=== PATIENT | male | born 1940 | race African-American/Black ===

== ENCOUNTER 2017-12-21 23:04 | Emergency (ER) | payer MEDICARE, MEDICAID ==
[~2017-12-21] VITALS: Ht 162.6 cm; Wt 80.0 kg
[2017-12-22 01:03] VITALS: BP 151/82
== END 2017-12-22 01:38 | disposition left against medical advice (07) ==
LOC: ER 23:15
DX: R04.0 Epistaxis (principal); Z53.21 Procedure and treatment not carried out due to patient leaving prior to being seen by health care provider

== ENCOUNTER 2022-06-10 19:26 | Inpatient (IN) | payer MEDICARE, MEDICAID ==
[~2022-06-10] VITALS: Ht 162.6 cm; Wt 61.7 kg
[2022-06-10 23:37] LABS: CHLORIDE 106 mEq/L (98-107)
[2022-06-10 23:38] LABS: HEMATOCRIT. 35.2 % (42.0-52.0); HEMOGLOBIN. 11.5 g/dL (14.0-18.0); MEAN CORPUSCULAR HEMOGLOBIN 30.5 pg (28.0-32.0); MEAN CORPUSCULAR VOLUME 93.6 fL (80.0-94.0); MEAN PLATELET VOLUME 9.8 fl (7.4-10.4); PLATELET 179 x1000/uL (130-400); RED BLOOD CELL COUNT 3.76 mill/uL (4.7-6.1); RED CELL DISTRIBUTION WIDTH 16.2 % (11.6-14.6)
[2022-06-11] MEDS ORDERED: PIPERACILLIN/TAZ 3.375G PREMIX 50 ML IV ONE (01:00)
[2022-06-11] MEDS ORDERED: VANCOMYCIN 1G PREMIX 200 ML IV ONE (01:00)
[2022-06-11 07:30] LABS: PLATELET ESTIMATE NORMAL
[2022-06-11 09:00] VITALS: BP 147/62
[2022-06-11] MEDS ORDERED: ACETAMINOPHEN 325MG TABLET PO PRN (12:15)
[2022-06-11] MEDS ORDERED: ONDANSETRON HCL 4MG/2ML INJ IV PRN (12:15)
[2022-06-11] MEDS ORDERED: IPRATROPIUM/ALBUTEROL 0.5-3(2.5)MG/3ML NEB HHN PRN (12:15)
[2022-06-11] MEDS ORDERED: ENOXAPARIN 40MG/0.4ML SYR SUBCUT SCH (13:00)
[2022-06-11] MEDS ORDERED: LEVOFLOXACIN 500MG PREMIX 100 ML IV NR (13:30)
[2022-06-11 16:00] VITALS: BP 142/75
[2022-06-11 16:00] LABS: HEMATOCRIT. 34.5 % (42.0-52.0); HEMOGLOBIN. 11.3 g/dL (14.0-18.0); MEAN CORPUSCULAR HEMOGLOBIN 30.6 pg (28.0-32.0); MEAN CORPUSCULAR VOLUME 93.4 fL (80.0-94.0); MEAN PLATELET VOLUME 9.9 fl (7.4-10.4); PLATELET 162 x1000/uL (130-400)
[2022-06-11] MEDS ORDERED: VANCOMYCIN 1G PREMIX 200 ML IV SCH (16:00)
[2022-06-11 16:18] LABS: CHLORIDE 106 mEq/L (98-107)
[2022-06-11] MEDS: SODIUM CHLORIDE 0.9% 1,000 ML IV SCH (16:25)
[2022-06-11 16:29] LABS: CREATINE KINASE MB FRACTION 1.3 ng/mL (0.5-3.6)
[2022-06-11] MEDS ORDERED: QUET25TA PO (16:53)
[2022-06-11] MEDS ORDERED: ATOR40TA70 PO (16:53)
[2022-06-11 18:09] LABS: BG BASE EXCESS -0.6 mmol/L (-2.0-2.0); BG CARBOXYHEMOGLOBIN 0.7 % (0.5-1.5); BG DEOXYHEMOGLOBIN 5.8 % (0.0-5.0); BG FRACTION INSPIRED OXYGEN 21; BG HCO3 ACT 23.1 mmol/L (22.0-26.0); BG METHEMOGLOBIN 0.3 % (0.0-1.5); BG OXYGEN SATURATION 94.1 % (92.0-98.5); BG OXYHEMOGLOBIN 93.2 % (94.0-97.0); BG PH 7.438 (7.350-7.450); BG PO2 65.1 mmHg (75.0-100.0); BG SAMPLE SITE RIGHT RADIAL; BG TOTAL HEMOGLOBIN 12.4 g/dL (12.0-18.0); BG VENT MODE ROOM AIR
[2022-06-11 20:00] VITALS: BP 161/68
[2022-06-11 21:47] LABS: CLARITY URINE CLOUDY (CLEAR); COLOR URINE RED (YELLOW); KETONES URINE NEGATIVE (NEGATIVE); LEUKOCYTE ESTERASE URINE 2+ (NEGATIVE); NITRITE URINE POSITIVE (NEGATIVE); OCCULT BLOOD URINE 2+ (NEGATIVE); PROTEIN URINE 3+ (NEGATIVE); SPECIFIC GRAVITY URINE 1.009 (1.005-1.030); UROBILINOGEN URINE 0.2 E.U./dL (0.2-1.0)
[2022-06-11 23:07] LABS: PLATELET ESTIMATE NORMAL
[2022-06-12] VITALS: BP 154/93
[2022-06-12 04:00] VITALS: BP 131/68
[2022-06-12] MEDS: SODIUM CHLORIDE 0.9% 1,000 ML IV SCH (07:22)
[2022-06-12 10:23] LABS: HEMATOCRIT. 31.7 % (42.0-52.0); HEMOGLOBIN. 10.4 g/dL (14.0-18.0); MEAN CORPUSCULAR HEMOGLOBIN 30.7 pg (28.0-32.0); MEAN CORPUSCULAR VOLUME 93.2 fL (80.0-94.0); MEAN PLATELET VOLUME 9.6 fl (7.4-10.4); PLATELET 139 x1000/uL (130-400); RED CELL DISTRIBUTION WIDTH 16.5 % (11.6-14.6)
[2022-06-12 10:40] LABS: CHLORIDE 109 mEq/L (98-107)
[2022-06-12 12:00] VITALS: BP 138/63
[2022-06-12] MEDS: ENOXAPARIN 30MG/0.3ML SYR SUBCUT SCH (13:23)
[2022-06-12] MEDS: LEVOFLOXACIN 250MG PREMIX 50 ML IV SCH (13:24)
[2022-06-12 16:31] LABS: CREATINE KINASE MB FRACTION 1.6 ng/mL (0.5-3.6)
[2022-06-12] MEDS: VANCOMYCIN 750MG PREMIX 150 ML IV SCH (20:02)
[2022-06-13] MEDS: SODIUM CHLORIDE 0.9% 1,000 ML IV SCH ×2 (03:22→23:33)
[2022-06-13 08:00] VITALS: BP 153/77
[2022-06-13 10:44] LABS: PLATELET ESTIMATE NORMAL
[2022-06-13] MEDS: LEVOFLOXACIN 250MG PREMIX 50 ML IV SCH (11:17)
[2022-06-13 12:00] VITALS: BP 148/67
[2022-06-13] MEDS: ENOXAPARIN 30MG/0.3ML SYR SUBCUT SCH (12:21)
[2022-06-13 16:00] VITALS: BP 138/86
[2022-06-13 18:11] VITALS: BP 137/66
[2022-06-13 20:00] VITALS: BP 150/64
[2022-06-13] MEDS: VANCOMYCIN 750MG PREMIX 150 ML IV SCH (20:57)
[2022-06-13 23:46] VITALS: BP 144/69
[2022-06-14 04:00] VITALS: BP 143/70
[2022-06-14 08:00] VITALS: BP 138/96
[2022-06-14] MEDS: LEVOFLOXACIN 250MG PREMIX 50 ML IV SCH (11:15)
[2022-06-14 11:16] LABS: HEMATOCRIT. 32.1 % (42.0-52.0); HEMOGLOBIN. 10.4 g/dL (14.0-18.0); MEAN CORPUSCULAR HEMOGLOBIN 30.3 pg (28.0-32.0); MEAN CORPUSCULAR VOLUME 93.1 fL (80.0-94.0); MEAN PLATELET VOLUME 9.9 fl (7.4-10.4); PLATELET 169 x1000/uL (130-400); RED BLOOD CELL COUNT 3.44 mill/uL (4.7-6.1); RED CELL DISTRIBUTION WIDTH 16.2 % (11.6-14.6)
[2022-06-14 11:27] LABS: PROTHROMBIN TIME 11.1 sec (9.6-11.0)
[2022-06-14 12:00] VITALS: BP 159/74
[2022-06-14] MEDS: ENOXAPARIN 30MG/0.3ML SYR SUBCUT SCH (13:02)
[2022-06-14 14:25] LABS: PLATELET ESTIMATE NORMAL
[2022-06-14 16:00] VITALS: BP 145/74
[2022-06-14] MEDS: FAMOTIDINE 20MG/2ML VIAL IV SCH (17:03)
[2022-06-14] MEDS: VANCOMYCIN 750MG PREMIX 150 ML IV SCH (19:52)
[2022-06-14 20:00] VITALS: BP_SYST 141; BP_SYST 161; BP_DIAS 66; BP_DIAS 81
[2022-06-14] MEDS: SODIUM CHLORIDE 0.9% 1,000 ML IV SCH (20:15)
[2022-06-14 20:56] LABS: CHLORIDE 112 mEq/L (98-107)
[2022-06-15] VITALS: BP 159/78
[2022-06-15 04:00] VITALS: BP 165/81
[2022-06-15 08:04] LABS: HEMATOCRIT. 32.3 % (42.0-52.0); HEMOGLOBIN. 10.6 g/dL (14.0-18.0); MEAN CORPUSCULAR HEMOGLOBIN 30.5 pg (28.0-32.0); PLATELET 182 x1000/uL (130-400); RED BLOOD CELL COUNT 3.48 mill/uL (4.7-6.1); RED CELL DISTRIBUTION WIDTH 16.5 % (11.6-14.6)
[2022-06-15] MEDS: FAMOTIDINE 20MG/2ML VIAL IV SCH (09:21)
[2022-06-15 10:26] LABS: CHLORIDE 115 mEq/L (98-107)
[2022-06-15 12:00] VITALS: BP 150/72
[2022-06-15] MEDS: LEVOFLOXACIN 250MG PREMIX 50 ML IV SCH (12:28)
[2022-06-15] MEDS: ENOXAPARIN 30MG/0.3ML SYR SUBCUT SCH (12:28)
[2022-06-15] MEDS: SODIUM CHLORIDE 0.9% 1,000 ML IV SCH (15:54)
[2022-06-15 16:00] VITALS: BP 150/74
[2022-06-15 20:00] VITALS: BP 154/77
[2022-06-15] MEDS: METRONIDAZOLE 500MG TABLET PO SCH (21:02)
[2022-06-16] VITALS: BP 152/75
[2022-06-16 04:00] VITALS: BP 155/79
[2022-06-16] MEDS: METRONIDAZOLE 500MG TABLET PO SCH ×2 (09:00→20:19)
[2022-06-16] MEDS: FAMOTIDINE 20MG/2ML VIAL IV SCH (10:09)
[2022-06-16 10:29] LABS: PLATELET ESTIMATE NORMAL
[2022-06-16 11:24] LABS: HEMATOCRIT. 30.2 % (42.0-52.0); HEMOGLOBIN. 9.8 g/dL (14.0-18.0); MEAN CORPUSCULAR HEMOGLOBIN 29.8 pg (28.0-32.0); MEAN CORPUSCULAR VOLUME 91.6 fL (80.0-94.0); MEAN PLATELET VOLUME 10.3 fl (7.4-10.4); PLATELET 192 x1000/uL (130-400); RED CELL DISTRIBUTION WIDTH 16.3 % (11.6-14.6)
[2022-06-16] MEDS: LEVOFLOXACIN 250MG PREMIX 50 ML IV SCH (11:36)
[2022-06-16 12:00] VITALS: BP 162/84
[2022-06-16] MEDS: SODIUM CHLORIDE 0.9% 1,000 ML IV SCH (12:03)
[2022-06-16 12:56] LABS: PLATELET ESTIMATE NORMAL
[2022-06-16] MEDS: ENOXAPARIN 30MG/0.3ML SYR SUBCUT SCH (13:44)
[2022-06-16 16:00] VITALS: BP 158/78
[2022-06-16] MEDS: DEXTROSE 5% WATER 1,000 ML IV SCH (17:38)
[2022-06-17 08:00] VITALS: BP 147/79
[2022-06-17] MEDS: METRONIDAZOLE 500MG TABLET PO SCH (08:32)
[2022-06-17 12:00] VITALS: BP 147/70
[2022-06-17] MEDS ORDERED: LEVOFLOXACIN 500MG PREMIX 100 ML IV SCH (13:30)
[2022-06-17 13:41] LABS: HEMATOCRIT. 30.6 % (42.0-52.0); HEMOGLOBIN. 10.3 g/dL (14.0-18.0); MEAN CORPUSCULAR HEMOGLOBIN 30.6 pg (28.0-32.0); MEAN CORPUSCULAR VOLUME 91.4 fL (80.0-94.0); MEAN PLATELET VOLUME 10.6 fl (7.4-10.4); PLATELET 219 x1000/uL (130-400); RED BLOOD CELL COUNT 3.35 mill/uL (4.7-6.1); RED CELL DISTRIBUTION WIDTH 16.5 % (11.6-14.6)
[2022-06-17] MEDS: FAMOTIDINE 20MG/2ML VIAL IV SCH (14:14)
[2022-06-17] MEDS: ENOXAPARIN 30MG/0.3ML SYR SUBCUT SCH (14:14)
[2022-06-17 14:16] LABS: PLATELET ESTIMATE NORMAL
[2022-06-17] MEDS: DEXTROSE 5% WATER 1,000 ML IV SCH (14:20)
[2022-06-17 16:00] VITALS: BP 144/77
[2022-06-17] MEDS: LEVOFLOXACIN 250MG PREMIX 50 ML IV SCH (18:59)
[2022-06-17 20:00] VITALS: BP 142/85
[2022-06-18] VITALS: BP 143/82
[2022-06-18] MEDS: METRONIDAZOLE 500MG TABLET PO SCH ×3 (02:41→21:11)
[2022-06-18 04:00] VITALS: BP 149/78
[2022-06-18 07:15] LABS: BASOPHILS % 0.2 % (0.0-2.0); EOSINOPHILS % 2.1 % (0.0-5.0); HEMATOCRIT. 29.7 % (42.0-52.0); HEMOGLOBIN. 9.9 g/dL (14.0-18.0); LYMPHOCYTES % 9.3 % (20.0-50.0); MEAN CORPUSCULAR HEMOGLOBIN 30.6 pg (28.0-32.0); MEAN CORPUSCULAR VOLUME 91.6 fL (80.0-94.0); MEAN PLATELET VOLUME 10.1 fl (7.4-10.4); MONOCYTES % 8.8 % (2.0-8.0); NEUTROPHILS % 79.6 % (40.0-76.0); PLATELET 249 x1000/uL (130-400); RED BLOOD CELL COUNT 3.24 mill/uL (4.7-6.1); RED CELL DISTRIBUTION WIDTH 16.6 % (11.6-14.6)
[2022-06-18] MEDS: DEXTROSE 5% WATER 1,000 ML IV SCH (08:00)
[2022-06-18 08:02] LABS: CHLORIDE 110 mEq/L (98-107)
[2022-06-18] MEDS: FAMOTIDINE 20MG/2ML VIAL IV SCH (09:16)
[2022-06-18 12:00] VITALS: BP 132/68
[2022-06-18] MEDS: ENOXAPARIN 30MG/0.3ML SYR SUBCUT SCH (12:01)
[2022-06-18] MEDS: LEVOFLOXACIN 250MG PREMIX 50 ML IV SCH (12:01)
[2022-06-18 16:00] VITALS: BP 141/70
[2022-06-18 20:00] VITALS: BP 132/74
[2022-06-19] VITALS: BP 137/79
[2022-06-19] MEDS: DEXTROSE 5% WATER 1,000 ML IV SCH (04:53)
[2022-06-19 08:00] VITALS: BP 139/60
[2022-06-19] MEDS: FAMOTIDINE 20MG TABLET PO SCH (09:13)
[2022-06-19] MEDS: METRONIDAZOLE 500MG TABLET PO SCH ×2 (09:13→21:32)
[2022-06-19] MEDS: LEVOFLOXACIN 250MG PREMIX 50 ML IV SCH (10:16)
[2022-06-19 12:03] VITALS: BP 140/64
[2022-06-19] MEDS: ENOXAPARIN 40MG/0.4ML SYR SUBCUT SCH (13:00)
[2022-06-19 16:00] VITALS: BP 135/66
[2022-06-19 20:45] VITALS: BP 143/76
[2022-06-20 00:28] VITALS: BP 139/73
[2022-06-20 04:00] VITALS: BP 148/77
[2022-06-20] MEDS: FAMOTIDINE 20MG TABLET PO SCH (09:19)
[2022-06-20] MEDS: METRONIDAZOLE 500MG TABLET PO SCH ×2 (09:19→21:12)
[2022-06-20 12:00] VITALS: BP 130/74
[2022-06-20] MEDS: ENOXAPARIN 40MG/0.4ML SYR SUBCUT SCH (12:19)
[2022-06-20] MEDS: LEVOFLOXACIN 250MG PREMIX 50 ML IV SCH (12:19)
[2022-06-20] MEDS ORDERED: POTASSIUM CHLORIDE 20MEQ TABLET SR PO NR (13:45)
[2022-06-20 16:00] VITALS: BP 145/93
[2022-06-20 20:47] VITALS: BP 140/80
[2022-06-20] MEDS: DEXTROSE 5% WATER 1,000 ML IV SCH (21:12)
[2022-06-21 00:37] VITALS: BP 123/69
[2022-06-21 04:00] VITALS: BP 145/81
[2022-06-21 04:41] VITALS: BP 145/81
[2022-06-21 08:00] VITALS: BP 160/84
[2022-06-21] MEDS: FAMOTIDINE 20MG TABLET PO SCH (09:09)
[2022-06-21] MEDS: LEVOFLOXACIN 250MG PREMIX 50 ML IV SCH (11:00)
[2022-06-21 12:00] VITALS: BP 135/77
[2022-06-21] MEDS: ENOXAPARIN 40MG/0.4ML SYR SUBCUT SCH (13:00)
[2022-06-21 16:00] VITALS: BP 138/81
== END 2022-06-21 17:41 | disposition home health service (06) | DRG 871 ==
LOC: ER 19:26 → 7WST 06-11 02:48 → ENRESERV 06-11 08:20
PROVIDERS: ADMIT Internal Medicine; ATTEND Internal Medicine
DX: A41.9 Sepsis, unspecified organism (principal); G93.41 Metabolic encephalopathy; N39.0 Urinary tract infection, site not specified; K80.00 Calculus of gallbladder with acute cholecystitis without obstruction; N17.9 Acute kidney failure, unspecified; I10 Essential (primary) hypertension; Z20.822 Contact with and (suspected) exposure to COVID-19; E78.00 Pure hypercholesterolemia, unspecified; E80.6 Other disorders of bilirubin metabolism; D64.9 Anemia, unspecified; F03.A0 Unspecified dementia, mild, without behavioral disturbance, psychotic disturbance, mood disturbance, and anxiety; Z79.899 Other long term (current) drug therapy; Z86.73 Personal history of transient ischemic attack (TIA), and cerebral infarction without residual deficits
CPT/HCPCS: 36415; 36600; 70551; 71045; 74176; 76705; 78227; 80048; 80053; 80202; 81003; 82375; 82553; 82805; 82962; 83605; 84145; 84153; 84484; 85025; 87077; 87186; 87426; 87804; 93005; 97116; 97162; 97166; 97530; 97535; 99285; A9537; J1650; J1956; J2543; J3370; J3490; J7030; J7070; A4315; G0103

== ENCOUNTER 2023-08-11 15:24 | Emergency (ER) | payer MEDICARE, MEDICAID, OTHER ==
[~2023-08-11] VITALS: Ht 167.6 cm; Wt 65.0 kg
[~2023-08-11 15:24] MED LIST: ATOR40TA70 PO; QUET25TA PO
[2023-08-11 15:29] VITALS: BP 102/54; PULSE 71; RESP 16; TEMP 97.5; O2SAT 97
[2023-08-11] MEDS ORDERED: CEFTRIAXONE SODIUM 1G VIAL IM ONE (19:00)
[2023-08-11 19:13] LABS: BASOPHILS % 0.4 % (0.0-2.0); EOSINOPHILS % 3.2 % (0.0-5.0); HEMATOCRIT. 32.3 % (42.0-52.0); LYMPHOCYTES % 24.7 % (20.0-50.0); MEAN CORPUSCULAR HEMOGLOBIN 29.7 pg (28.0-32.0); MEAN CORPUSCULAR VOLUME 95.7 fL (80.0-94.0); MEAN PLATELET VOLUME 9.5 fl (7.4-10.4); MONOCYTES % 7.3 % (2.0-8.0); NEUTROPHILS % 64.4 % (40.0-76.0); PLATELET 185 x1000/uL (130-400); RED BLOOD CELL COUNT 3.38 mill/uL (4.7-6.1); RED CELL DISTRIBUTION WIDTH 17.8 % (11.6-14.6); WHITE BLOOD COUNT 4.6 x1000/uL (4.5-11.0)
[2023-08-11] MEDS ORDERED: SODIUM CHLORIDE 0.9% 1,000 ML IV ONE (19:15)
[2023-08-11 19:30] LABS: ALANINE AMINOTRANSFERASE < 7 IU/L (10-49); ALBUMIN 3.5 g/dL (3.2-4.8); ASPARTATE AMINOTRANSFERASE 12 IU/L (<34); BILIRUBIN TOTAL 0.6 mg/dL (0.1-1.0); CALCIUM 8.6 mg/dL (8.7-10.4); CARBON DIOXIDE 22 mEq/L (21-32); CHLORIDE 109 mEq/L (98-107); CREATININE 1.3 mg/dL (0.6-1.3); GLUCOSE 109 mg/dL (70-105); POTASSIUM 4.3 mEq/L (3.5-5.1); PROTEIN TOTAL 6.7 g/dL (6.0-8.3); SODIUM 138 mEq/L (136-145); UREA NITROGEN BLOOD 14 mg/dL (9-23)
[2023-08-11] MEDS ORDERED: CIPR-263 MT (19:52)
[2023-08-11 20:24] LABS: CLARITY URINE CLEAR (CLEAR); COLOR URINE YELLOW (YELLOW); GLUCOSE URINE NEGATIVE (NEGATIVE); KETONES URINE NEGATIVE (NEGATIVE); LEUKOCYTE ESTERASE URINE NEGATIVE (NEGATIVE); NITRITE URINE NEGATIVE (NEGATIVE); OCCULT BLOOD URINE 2+ (NEGATIVE); PH URINE 6.5 (4.5-8.0); PROTEIN URINE 2+ (NEGATIVE); SPECIFIC GRAVITY URINE 1.007 (1.005-1.030)
[2023-08-11 20:39] LABS: BACTERIA URINE NONE SEEN; RBC URINE 15-25 /hpf (0-2); SQUAMOUS EPITHELIAL CELL URINE RARE /lpf (RARE/1+); WBC URINE NONE SEEN /hpf (0-2)
[2023-08-11] MEDS ORDERED: CEFTRIAXONE SODIUM 1G VIAL IM NR (21:00)
== END 2023-08-11 22:28 | disposition home or self-care (01) ==
LOC: ER 15:24
DX: I89.0 Lymphedema, not elsewhere classified (principal); N49.2 Inflammatory disorders of scrotum; E11.9 Type 2 diabetes mellitus without complications; I10 Essential (primary) hypertension; Z86.73 Personal history of transient ischemic attack (TIA), and cerebral infarction without residual deficits
CPT/HCPCS: 99285; 96360; 93976; 96361; 80053; 81003; 85025; 36415; 76870; 96372; J0696; J7030